=== PATIENT | female | born 1990 | race Caucasian/White ===

== ENCOUNTER 2024-02-03 13:53 | Inpatient (IN) | payer MEDICAID ==
[~2024-02-03] VITALS: Ht 170.2 cm; Wt 118.4 kg
[2024-02-03] MEDS ORDERED: METF-1211 PO (16:55)
[2024-02-03] MEDS ORDERED: LITH300T PO (16:55)
[2024-02-03] MEDS ORDERED: DIVA-112 PO ×2 (16:55)
[2024-02-03] MEDS ORDERED: QUET300T2 PO ×2 (16:55)
[2024-02-03] MEDS ORDERED: LITH600C5 PO (16:55)
[2024-02-03 16:58] LABS: BASOPHILS % (AUTO) 0.6 % (0.0-2.0); EOSINOPHILS % (AUTO) 5.2 % (1.0-6.0); HEMATOCRIT 37.5 % (36-46); HEMOGLOBIN 12.5 g/dL (12.0-16.0); LYMPHOCYTES # (AUTO) 2.2 K/uL (1.0-4.8); LYMPHOCYTES % (AUTO) 24.6 % (22.0-44.0); MEAN CORPUSCULAR HEMOGLOBIN 30.9 pg (26.0-34.0); MEAN CORPUSCULAR HGB CONC 33.3 G/dL (31.0-37.0); MEAN CORPUSCULAR VOLUME 93 fL (80-100); MONOCYTES # (AUTO) 1.1 K/uL (0.1-1.0); MONOCYTES % (AUTO) 12.2 % (2.0-9.0); NEUTROPHILS # (AUTO) 5.1 K/uL (1.8-7.7); NEUTROPHILS % (AUTO) 57.4 % (40.0-70.0); PLATELET COUNT (AUTO) 280 K/uL (150-450); RED BLOOD CELL COUNT(AUTO) 4.04 MIL/uL (4.00-5.20); WHITE BLOOD COUNT (AUTO) 8.9 K/uL (4.5-11.0)
[2024-02-03 17:09] LABS: ANION GAP 9 mmol/L (8-16); CALCIUM, TOTAL 8.4 mg/dL (8.8-10.5); CARBON DIOXIDE 28 mmol/L (22-29); CHLORIDE 103 mmol/L (98-107); CREATININE 0.68 mg/dL (0.60-1.30); GLOMERULAR FILTR. RATE CALC > 60 mL/min (>60); GLUCOSE,RANDOM 84 mg/dL (70-110); POTASSIUM 4.5 mmol/L (3.5-5.1); SODIUM SERUM 140 mmol/L (136-145); UREA NITROGEN, BLOOD 16 mg/dL (7-18)
[2024-02-03 17:15] LABS: ALCOHOL, BLOOD (SERUM) < 3 mg/dL (0-10)
[2024-02-03 17:52] LABS: PH,URINE DRUG SCREEN 7.5 (5.0-8.0)
[2024-02-03 18:13] LABS: ALCOHOL, URINE DRUG SCREEN NEGATIVE (NEGATIVE); AMPHET/METH SCREEN,URINE NEGATIVE (NEGATIVE); BARBITURATE SCREEN, URINE NEGATIVE (NEGATIVE); BENZODIAZEPINES SCREEN,URINE NEGATIVE (NEGATIVE); CANNABINOID SCREEN,URINE NEGATIVE (NEGATIVE); COCAINE SCREEN,URINE NEGATIVE (NEGATIVE); METHADONE SCREEN, URINE NEGATIVE (NEGATIVE); OPIATE SCREEN,URINE NEGATIVE (NEGATIVE); PHENCYCLIDINE SCREEN,URINE NEGATIVE (NEGATIVE)
[2024-02-03 18:56] LABS: VALPROIC ACID 67 mcg/mL (50-100)
[2024-02-03] MEDS: DiphenhydrAMINE HCL 50 MG/ML VIAL IM ONE (19:00)
[2024-02-03] MEDS: LORazepam 2 MG/ML VIAL IM ONE (19:01)
[2024-02-03] MEDS: HALOPERIDOL LACTATE 5 MG/ML VIAL IM ONE (19:01)
[2024-02-04 00:14] LABS: COVID AG,FIA SOURCE NASAL SWAB
[2024-02-04 00:35] LABS: SARS-COV2 (COVID) ANTIGEN,FIA Negative (Negative)
[2024-02-04] MEDS: NICOTINE 21 MG/24 HOUR PATCH TD ONE (11:30)
[2024-02-04] MEDS: LORazepam 2 MG TABLET PO PRN (13:44)
[2024-02-04] MEDS ORDERED: MAGNESIUM HYDROXIDE SUSPENSION 30 ML UDCUP PO PRN (16:15)
[2024-02-04] MEDS ORDERED: LOPERAMIDE HCL 2 MG CAPSULE PO PRN (16:15)
[2024-02-04] MEDS ORDERED: MAG HYDROX/ALUMINUM HYD/SIMETH ES 30 ML SUSPENSION UDCUP PO PRN (16:15)
[2024-02-04] MEDS ORDERED: HydrOXYzine PAMOATE 50 MG CAPSULE PO PRN (16:15)
[2024-02-04] MEDS ORDERED: PROMETHAZINE HCL 25 MG TABLET PO PRN (16:15)
[2024-02-04] MEDS ORDERED: TUBERCULIN, PURIFIED PROTEIN DERIVATIVE 5 TU/0.1 ML SYRINGE ID ONE (16:15)
[2024-02-04] MEDS: LITHIUM CARBONATE 600 MG CAPSULE PO SCH (17:49)
[2024-02-04] MEDS: THIAMINE 100 MG TABLET PO SCH (17:49)
[2024-02-04] MEDS: HALOPERIDOL 5 MG TABLET PO PRN (17:50)
[2024-02-04 18:22] VITALS: BP 111/75; PULSE 95; RESP 18; TEMP 98.7; O2SAT 99
[2024-02-04 20:50] VITALS: BP 135/76; PULSE 76; RESP 18; TEMP 97.2; O2SAT 99
[2024-02-04 21:13] VITALS: BP 118/76; PULSE 88; RESP 18; TEMP 98.2; O2SAT 99
[2024-02-04] MEDS: QUEtiapine FUMARATE 200 MG TABLET PO SCH (21:37)
[2024-02-04] MEDS: ZOLPIDEM TARTRATE 10 MG TABLET PO PRN (21:37)
[2024-02-04] MEDS: DIVALPROEX SODIUM 500 MG ER TABLET PO SCH (21:38)
[2024-02-04] MEDS: MELATONIN 5 MG TABLET PO SCH (21:38)
[2024-02-05 08:21] VITALS: BP 109/66; PULSE 72; RESP 17; TEMP 97.8; O2SAT 99
[2024-02-05 09:00] VITALS: RESP 18
[2024-02-05] MEDS: FOLIC ACID 1 MG TABLET PO SCH (09:11)
[2024-02-05] MEDS: MULTIVITAMINS WITH MINERALS, THERAPEUTIC TABLET PO SCH (09:11)
[2024-02-05 09:30] LABS: GLUCOMETER DEV NAME(LOC) BV3S.; GLUCOSE,POINT OF CARE 110 MG/DL (70-110)
[2024-02-05 20:15] VITALS: BP 138/79; PULSE 95; RESP 18; TEMP 98.2
[2024-02-05] MEDS: NICOTINE 21 MG/24 HOUR PATCH TD SCH (20:44)
[2024-02-05 21:07] VITALS: BP 138/79; PULSE 95; RESP 16; TEMP 98.2; O2SAT 96
[2024-02-06 09:28] VITALS: RESP 15
[2024-02-06 09:30] VITALS: RESP 15
[2024-02-06 12:21] VITALS: RESP 15
[2024-02-06] MEDS: ACETAMINOPHEN 325 MG TABLET PO PRN (12:21)
[2024-02-06 13:21] VITALS: RESP 16
[2024-02-06] MEDS ORDERED: DiphenhydrAMINE HCL 50 MG/ML VIAL ONE (14:30)
[2024-02-06] MEDS ORDERED: HALOPERIDOL LACTATE 5 MG/ML VIAL ONE (14:30)
[2024-02-06] MEDS ORDERED: LORazepam 2 MG/ML VIAL ONE (14:30)
[2024-02-06] MEDS: DiphenhydrAMINE HCL 50 MG/ML VIAL IM ONE (14:41)
[2024-02-06] MEDS: HALOPERIDOL LACTATE 5 MG/ML VIAL IM ONE (14:41)
[2024-02-06] MEDS: LORazepam 2 MG/ML VIAL IM ONE (14:41)
[2024-02-06 21:30] VITALS: BP 123/68; PULSE 109; RESP 18; TEMP 97.7; O2SAT 99
[2024-02-07 08:46] VITALS: BP 99/62; PULSE 72; RESP 18; TEMP 98; O2SAT 98
[2024-02-07 21:26] VITALS: BP 100/58; PULSE 97; RESP 17; TEMP 98; O2SAT 96
[2024-02-08 08:32] VITALS: BP 88/56; PULSE 82; RESP 16; TEMP 97.8; O2SAT 97
[2024-02-08] MEDS: GuaiFENesin/D-METHORPHAN [SUGAR-FREE] 200-20MG/10 ML SYRUP UDCUP PO PRN (10:15)
[2024-02-08 10:35] VITALS: BP 116/65; PULSE 96; RESP 17; TEMP 97.9; O2SAT 96
[2024-02-08] MEDS: NICOTINE POLACRILEX 2 MG LOZENGE PO PRN (17:56)
[2024-02-08 21:57] VITALS: BP 128/92; PULSE 98; RESP 16; TEMP 98; O2SAT 99
[2024-02-09 05:55] VITALS: RESP 20
[2024-02-09 08:40] VITALS: BP 97/61; PULSE 93; RESP 18; TEMP 97.7; O2SAT 98
[2024-02-09] MEDS: LORazepam 2 MG/ML VIAL IM ONE (17:42)
[2024-02-09] MEDS: HALOPERIDOL LACTATE 5 MG/ML VIAL IM ONE (17:42)
[2024-02-09] MEDS: DiphenhydrAMINE HCL 50 MG/ML VIAL IM ONE (17:42)
[2024-02-09 20:06] VITALS: BP 133/91; PULSE 99; RESP 18; TEMP 97.8; O2SAT 99
[2024-02-09 21:14] VITALS: BP 102/68; PULSE 92; RESP 18; TEMP 97.5; O2SAT 97
[2024-02-10 08:53] VITALS: BP 102/67; PULSE 62; RESP 17; TEMP 97.7; O2SAT 96
[2024-02-10] MEDS: NICOTINE 21 MG/24 HOUR PATCH TD ONE (13:56)
[2024-02-10 14:05] VITALS: RESP 17
[2024-02-10 15:05] VITALS: RESP 17
[2024-02-10] MEDS: QUEtiapine FUMARATE 200 MG TABLET PO SCH (20:40)
[2024-02-10] MEDS: OLANZapine 5 MG RAPDIS TABLET PO SCH (22:01)
[2024-02-10 22:17] VITALS: BP 114/70; PULSE 96; RESP 16; TEMP 96.8; O2SAT 98
[2024-02-11 09:47] VITALS: BP 132/79; PULSE 98; RESP 18; TEMP 97.9; O2SAT 96
[2024-02-11] MEDS: NICOTINE 21 MG/24 HOUR PATCH TD SCH (13:25)
[2024-02-11 19:54] VITALS: BP 135/81; PULSE 84; RESP 18; TEMP 97.9; O2SAT 98
[2024-02-11 22:53] VITALS: BP 135/81; PULSE 84; RESP 18; TEMP 97.9; O2SAT 84
[2024-02-12 08:34] VITALS: BP 135/88; PULSE 83; RESP 17; TEMP 97.8; O2SAT 97
[2024-02-12] MEDS: QUEtiapine FUMARATE 200 MG TABLET PO SCH (20:37)
[2024-02-12] MEDS: OLANZapine 10 MG RAPDIS TABLET PO SCH (20:38)
[2024-02-12 20:39] VITALS: BP 134/72; PULSE 89; RESP 17; TEMP 98.3; O2SAT 97
[2024-02-13 08:31] VITALS: RESP 16
[2024-02-13] MEDS: OLANZapine 10 MG RAPDIS TABLET PO SCH (20:13)
[2024-02-13] MEDS ORDERED: QUEtiapine FUMARATE 100 MG TABLET PO SCH (21:00)
[2024-02-13 23:51] VITALS: RESP 18
[2024-02-14 08:27] VITALS: BP 116/62; PULSE 70; RESP 17; TEMP 98; O2SAT 100
[2024-02-14 10:15] VITALS: RESP 17
[2024-02-14 11:15] VITALS: RESP 17
[2024-02-14 20:52] VITALS: BP 114/73; PULSE 101; RESP 17; TEMP 98
[2024-02-15 08:13] VITALS: BP 100/60; PULSE 74; RESP 16; TEMP 97.3; O2SAT 97
[2024-02-15 20:28] VITALS: BP 97/59; PULSE 106; RESP 17; TEMP 97.5; O2SAT 98
[2024-02-16 08:28] VITALS: BP 116/74; PULSE 80; RESP 16; TEMP 98; O2SAT 97
[2024-02-16] MEDS ORDERED: DIVA-153 PO (14:03)
[2024-02-16] MEDS ORDERED: MELA5TAB40 PO (14:03)
[2024-02-16] MEDS ORDERED: OLAN10TA26 PO (14:03)
[2024-02-16] MEDS ORDERED: LITH600C PO (14:03)
== END 2024-02-16 18:40 | DRG 750 ==
LOC: EMS 13:53 → EDBEDREQ 02-04 08:32 → B3A 02-04 15:35
PROVIDERS: ADMIT Psychiatry & Neurology Psychiatry; ATTEND Psychiatry & Neurology Psychiatry
PROC: GZHZZZZ Group Psychotherapy (ICD-10-PCS; principal; 2024-02-05)
PROC: GZ58ZZZ Individual Psychotherapy, Cognitive-Behavioral (ICD-10-PCS; 2024-02-05)
DX: F25.9 Schizoaffective disorder, unspecified (principal); E11.9 Type 2 diabetes mellitus without complications; E66.01 Morbid (severe) obesity due to excess calories; K59.00 Constipation, unspecified; Z20.822 Contact with and (suspected) exposure to COVID-19; G47.00 Insomnia, unspecified; Z87.891 Personal history of nicotine dependence; Z88.0 Allergy status to penicillin; Z91.148 Patient's other noncompliance with medication regimen for other reason; Z68.41 Body mass index [BMI] 40.0-44.9, adult; Z55.9 Problems related to education and literacy, unspecified; Z59.9 Problem related to housing and economic circumstances, unspecified; Z63.9 Problem related to primary support group, unspecified; Z65.3 Problems related to other legal circumstances
CPT/HCPCS: 80048; 80164; 80178; 80307; 82962; 85025; 87081; 87481; 99285; G0480; J1200; J1630; J2060

== ENCOUNTER 2024-02-20 19:48 | Emergency (ER) | payer MEDICAID, OTHER ==
[~2024-02-20] VITALS: Ht 170.2 cm; Wt 104.5 kg
[~2024-02-20 19:48] MED LIST: DIVA-112 PO; DIVA-153 PO; LITH600C PO; MELA5TAB40 PO; OLAN10TA26 PO
[2024-02-20 20:01] VITALS: TEMP 98.7
[2024-02-20 21:00] VITALS: BP 119/68; PULSE 89; RESP 18; O2SAT 97
== END 2024-02-21 02:20 | disposition home or self-care (01) ==
LOC: EMS 19:48
DX: R45.1 Restlessness and agitation (principal); F41.9 Anxiety disorder, unspecified; E11.9 Type 2 diabetes mellitus without complications; F20.9 Schizophrenia, unspecified; F17.210 Nicotine dependence, cigarettes, uncomplicated; Z88.0 Allergy status to penicillin
CPT/HCPCS: 99283; Z7502

== ENCOUNTER 2024-02-27 18:31 | Inpatient (IN) | payer MEDICAID, OTHER ==
[~2024-02-27] VITALS: Ht 162.6 cm; Wt 122.0 kg
[2024-02-27 19:53] LABS: BASOPHILS % (AUTO) 0.7 % (0.0-2.0); EOSINOPHILS % (AUTO) 6.2 % (1.0-6.0); HEMATOCRIT 39.8 % (36-46); LYMPHOCYTES # (AUTO) 2.7 K/uL (1.0-4.8); MEAN CORPUSCULAR HEMOGLOBIN 30.9 pg (26.0-34.0); MEAN CORPUSCULAR HGB CONC 32.7 G/dL (31.0-37.0); MEAN CORPUSCULAR VOLUME 95 fL (80-100); MONOCYTES % (AUTO) 9.9 % (2.0-9.0); NEUTROPHILS # (AUTO) 5.5 K/uL (1.8-7.7); NEUTROPHILS % (AUTO) 56.2 % (40.0-70.0); PLATELET COUNT (AUTO) 312 K/uL (150-450); RED BLOOD CELL COUNT(AUTO) 4.22 MIL/uL (4.00-5.20); RED CELL DISTRIBUTION WIDTH 14.8 % (11.5-14.5); WHITE BLOOD COUNT (AUTO) 9.8 K/uL (4.5-11.0)
[2024-02-27 19:55] LABS: COVID AG,FIA SOURCE NASAL SWAB
[2024-02-27 19:58] LABS: CARBON DIOXIDE 26 mmol/L (22-29); CHLORIDE 105 mmol/L (98-107); CREATININE 0.62 mg/dL (0.60-1.30); GLOMERULAR FILTR. RATE CALC > 60 mL/min (>60); GLUCOSE,RANDOM 93 mg/dL (70-110); POTASSIUM 4.1 mmol/L (3.5-5.1); SODIUM SERUM 138 mmol/L (136-145); UREA NITROGEN, BLOOD 17 mg/dL (7-18)
[2024-02-27 20:11] LABS: ALCOHOL, BLOOD (SERUM) < 3 mg/dL (0-10)
[2024-02-27 20:12] LABS: ANION GAP 7 mmol/L (8-16)
[2024-02-27 20:13] LABS: ALCOHOL, URINE DRUG SCREEN NEGATIVE (NEGATIVE); AMPHET/METH SCREEN,URINE NEGATIVE (NEGATIVE); BARBITURATE SCREEN, URINE NEGATIVE (NEGATIVE); BENZODIAZEPINES SCREEN,URINE NEGATIVE (NEGATIVE); CANNABINOID SCREEN,URINE NEGATIVE (NEGATIVE); COCAINE SCREEN,URINE NEGATIVE (NEGATIVE); METHADONE SCREEN, URINE NEGATIVE (NEGATIVE); OPIATE SCREEN,URINE NEGATIVE (NEGATIVE); PHENCYCLIDINE SCREEN,URINE NEGATIVE (NEGATIVE)
[2024-02-27] MEDS: HALOPERIDOL LACTATE 5 MG/ML VIAL IM ONE (20:19)
[2024-02-27] MEDS: LORazepam 2 MG/ML VIAL IM ONE (20:19)
[2024-02-27 20:20] LABS: SARS-COV2 (COVID) ANTIGEN,FIA Negative (Negative)
[2024-02-27] MEDS: DiphenhydrAMINE HCL 50 MG/ML VIAL IM ONE (20:20)
[2024-02-28 08:30] VITALS: O2SAT 98
[2024-02-28 10:12] VITALS: BP 123/85; PULSE 108; RESP 18; TEMP 98.2; O2SAT 95
[2024-02-28] MEDS ORDERED: DOCUSATE SODIUM 100 MG CAPSULE PO PRN (11:45)
[2024-02-28] MEDS ORDERED: LOPERAMIDE HCL 2 MG CAPSULE PO PRN (11:45)
[2024-02-28] MEDS ORDERED: ACETAMINOPHEN 325 MG TABLET PO PRN (11:45)
[2024-02-28] MEDS ORDERED: CloNIDine HCL 0.1 MG TABLET PO PRN (11:45)
[2024-02-28] MEDS ORDERED: ALBUTEROL SULFATE HFA 90 MCG/PUFF 8 GM INHALER IH PRN (11:45)
[2024-02-28] MEDS ORDERED: MAGNESIUM HYDROXIDE SUSPENSION 30 ML UDCUP PO PRN (11:45)
[2024-02-28] MEDS ORDERED: ONDANSETRON 4 MG TABLET PO PRN (11:45)
[2024-02-28] MEDS ORDERED: OMEPRAZOLE 20 MG CAPSULE PO PRN (11:45)
[2024-02-28] MEDS ORDERED: BENZOCAINE/MENTHOL LOZENGE PO PRN (11:45)
[2024-02-28] MEDS ORDERED: IBUPROFEN 600 MG TABLET PO PRN (11:45)
[2024-02-28] MEDS ORDERED: MAG HYDROX/ALUMINUM HYD/SIMETH ES 30 ML SUSPENSION UDCUP PO PRN (11:45)
[2024-02-28] MEDS ORDERED: PETROLATUM,WHITE 28 GM JELLY TP PRN (11:45)
[2024-02-28] MEDS ORDERED: BACITRACIN 28 GM OINTMENT TP PRN (11:45)
[2024-02-28] MEDS: HALOPERIDOL 5 MG TABLET PO PRN (14:58)
[2024-02-28 20:16] VITALS: BP 115/74; PULSE 107; RESP 17; TEMP 98.4; O2SAT 95
[2024-02-28] MEDS: NICOTINE POLACRILEX 2 MG LOZENGE PO PRN (21:01)
[2024-02-28] MEDS: ZOLPIDEM TARTRATE 10 MG TABLET PO PRN (21:01)
[2024-02-28] MEDS: LORazepam 2 MG TABLET PO PRN (22:06)
[2024-02-29 08:34] VITALS: BP 100/60; PULSE 83; RESP 17; TEMP 97; O2SAT 97
[2024-02-29 20:04] VITALS: BP 106/65; PULSE 95; RESP 16; TEMP 98; O2SAT 98
[2024-03-01 08:18] VITALS: RESP 16
[2024-03-01] MEDS ORDERED: ACETAMINOPHEN 325 MG TABLET PO PRN (11:30)
[2024-03-01] MEDS ORDERED: GuaiFENesin/D-METHORPHAN [SUGAR-FREE] 200-20MG/10 ML SYRUP UDCUP PO PRN (11:30)
[2024-03-01] MEDS ORDERED: MAGNESIUM HYDROXIDE SUSPENSION 30 ML UDCUP PO PRN (11:30)
[2024-03-01] MEDS ORDERED: PROMETHAZINE HCL 25 MG TABLET PO PRN (11:30)
[2024-03-01] MEDS ORDERED: MAG HYDROX/ALUMINUM HYD/SIMETH ES 30 ML SUSPENSION UDCUP PO PRN (11:30)
[2024-03-01] MEDS ORDERED: LOPERAMIDE HCL 2 MG CAPSULE PO PRN (11:30)
[2024-03-01] MEDS: ETHYL ALCOHOL 62% ANTISEPTIC NASAL SANITIZER 0.6 ML AMPUL NASAL SCH (12:33)
[2024-03-01] MEDS ORDERED: LORazepam 2 MG/ML VIAL ONE (15:43)
[2024-03-01] MEDS ORDERED: HALOPERIDOL LACTATE 5 MG/ML VIAL ONE (15:43)
[2024-03-01] MEDS ORDERED: DiphenhydrAMINE HCL 50 MG/ML VIAL ONE (15:43)
[2024-03-01] MEDS: LORazepam 2 MG/ML VIAL IM ONE (15:53)
[2024-03-01] MEDS: DiphenhydrAMINE HCL 50 MG/ML VIAL IM ONE (15:53)
[2024-03-01] MEDS: HALOPERIDOL LACTATE 5 MG/ML VIAL IM ONE (15:53)
[2024-03-01] MEDS: THIAMINE 100 MG TABLET PO SCH (16:25)
[2024-03-01] MEDS: OLANZapine 5 MG RAPDIS TABLET PO PRN (16:25)
[2024-03-01] MEDS: LITHIUM CARBONATE 600 MG CAPSULE PO SCH (16:25)
[2024-03-01] MEDS: HydrOXYzine PAMOATE 50 MG CAPSULE PO PRN (16:26)
[2024-03-01] MEDS: MELATONIN 5 MG TABLET PO SCH (20:09)
[2024-03-01] MEDS: DIVALPROEX SODIUM 500 MG ER TABLET PO SCH (20:09)
[2024-03-01] MEDS: OLANZapine 5 MG RAPDIS TABLET PO SCH (20:09)
[2024-03-01 20:19] VITALS: BP 142/82; PULSE 86; RESP 16; TEMP 96.5; O2SAT 98
[2024-03-01] MEDS: CHLORHEXIDINE GLUCONATE 2% TOWELETTE [2'S/6'S] TP SCH (22:00)
[2024-03-02 08:11] VITALS: BP 130/86; PULSE 80; RESP 16; TEMP 98; O2SAT 98
[2024-03-02] MEDS: MULTIVITAMINS WITH MINERALS, THERAPEUTIC TABLET PO SCH (09:02)
[2024-03-02] MEDS: FOLIC ACID 1 MG TABLET PO SCH (09:02)
[2024-03-02 09:11] LABS: CHOL/HDL RATIO 3.3 (3.9-5.7)
[2024-03-02] MEDS: OLANZapine 10 MG RAPDIS TABLET PO SCH (20:07)
[2024-03-02 22:03] VITALS: RESP 18
[2024-03-03 08:11] VITALS: RESP 18
[2024-03-03 20:28] VITALS: BP 139/94; PULSE 90; RESP 18; TEMP 97.6; O2SAT 97
[2024-03-04 08:04] VITALS: RESP 18
== END 2024-03-04 20:48 | DRG 750 ==
LOC: EMS 18:31 → B3A 02-28 08:18
PROVIDERS: ADMIT Psychiatry & Neurology Psychiatry; ATTEND Psychiatry & Neurology Psychiatry
PROC: GZ56ZZZ Individual Psychotherapy, Supportive (ICD-10-PCS; principal; 2024-03-01)
DX: F25.9 Schizoaffective disorder, unspecified (principal); E11.9 Type 2 diabetes mellitus without complications; E66.9 Obesity, unspecified; G47.00 Insomnia, unspecified; Z20.822 Contact with and (suspected) exposure to COVID-19; K59.00 Constipation, unspecified; Z60.8 Other problems related to social environment; F17.210 Nicotine dependence, cigarettes, uncomplicated; Z78.1 Physical restraint status; F32.9 Major depressive disorder, single episode, unspecified; Z59.00 Homelessness unspecified; Z68.42 Body mass index [BMI] 45.0-49.9, adult; Z91.148 Patient's other noncompliance with medication regimen for other reason; F41.9 Anxiety disorder, unspecified
CPT/HCPCS: 80048; 80061; 80164; 80178; 80307; 83036; 84703; 85025; 87081; 99285; G0480; J1200; J1630; J2060

== ENCOUNTER 2024-04-03 10:47 | Inpatient (IN) | payer MEDICAID, OTHER ==
[~2024-04-03] VITALS: Ht 170.2 cm; Wt 121.6 kg
[~2024-04-03 10:47] MED LIST changes: -DIVA-112 PO
[2024-04-03] MEDS ORDERED: THIA100T80 PO (12:16)
[2024-04-03] MEDS ORDERED: DIAZ-328 PO ×2 (12:16)
[2024-04-03] MEDS ORDERED: MELA5TAB40 PO (12:16)
[2024-04-03] MEDS ORDERED: CHLO100T42 PO (12:16)
[2024-04-03] MEDS ORDERED: OLAN10TA74 PO (12:16)
[2024-04-03] MEDS ORDERED: MULT-1203 PO (12:16)
[2024-04-03] MEDS ORDERED: HALO100V36 IM (12:16)
[2024-04-03] MEDS ORDERED: DIVA-112 PO (12:16)
[2024-04-03 12:28] LABS: COVID AG,FIA SOURCE NASAL SWAB
[2024-04-03 12:49] LABS: HEMATOCRIT 38.4 % (36-46); HEMOGLOBIN 12.7 g/dL (12.0-16.0); LYMPHOCYTES % (AUTO) 30.1 % (22.0-44.0); MEAN CORPUSCULAR HEMOGLOBIN 31.2 pg (26.0-34.0); MEAN CORPUSCULAR HGB CONC 33.1 G/dL (31.0-37.0); MEAN CORPUSCULAR VOLUME 94 fL (80-100); MONOCYTES # (AUTO) 0.4 K/uL (0.1-1.0); MONOCYTES % (AUTO) 6.7 % (2.0-9.0); NEUTROPHILS # (AUTO) 3.8 K/uL (1.8-7.7); NEUTROPHILS % (AUTO) 58.2 % (40.0-70.0); PLATELET COUNT (AUTO) 334 K/uL (150-450); RED BLOOD CELL COUNT(AUTO) 4.07 MIL/uL (4.00-5.20); RED CELL DISTRIBUTION WIDTH 13.4 % (11.5-14.5); WHITE BLOOD COUNT (AUTO) 6.5 K/uL (4.5-11.0)
[2024-04-03 12:49] LABS: SARS-COV2 (COVID) ANTIGEN,FIA Negative (Negative)
[2024-04-03 12:54] LABS: ANION GAP 6 mmol/L (8-16); CALCIUM, TOTAL 8.4 mg/dL (8.8-10.5); CARBON DIOXIDE 30 mmol/L (22-29); CHLORIDE 106 mmol/L (98-107); CREATININE 0.58 mg/dL (0.60-1.30); GLOMERULAR FILTR. RATE CALC > 60 mL/min (>60); GLUCOSE,RANDOM 98 mg/dL (70-110); POTASSIUM 4.3 mmol/L (3.5-5.1); SODIUM SERUM 141 mmol/L (136-145); UREA NITROGEN, BLOOD 8 mg/dL (7-18)
[2024-04-03 12:56] LABS: ALCOHOL, BLOOD (SERUM) < 3 mg/dL (0-10)
[2024-04-03] MEDS ORDERED: ALPRAZolam 0.5 MG TABLET PO PRN (16:15)
[2024-04-03] MEDS: MELATONIN 5 MG TABLET PO SCH (20:16)
[2024-04-03] MEDS: ChlorproMAZINE HCL 10 MG TABLET PO SCH (21:19)
[2024-04-03] MEDS: TraZODone HCL 100 MG TABLET PO SCH (21:20)
[2024-04-03] MEDS: DESMOPRESSIN ACETATE 0.2 MG TABLET PO SCH (21:22)
[2024-04-03] MEDS: DiphenhydrAMINE HCL 50 MG/ML VIAL IM ONE (21:23)
[2024-04-03] MEDS: LORazepam 2 MG/ML VIAL IM ONE (21:23)
[2024-04-03] MEDS: HALOPERIDOL LACTATE 5 MG/ML VIAL IM ONE (21:24)
[2024-04-03] MEDS: DIAZEPAM 5 MG TABLET PO SCH (22:07)
[2024-04-04] MEDS: ZOLPIDEM TARTRATE 10 MG TABLET PO PRN (02:27)
[2024-04-04] MEDS: DIAZEPAM 5 MG TABLET PO SCH (07:33)
[2024-04-04] MEDS: ChlorproMAZINE HCL 10 MG TABLET PO SCH (07:34)
[2024-04-04] MEDS: OLANZapine 10 MG RAPDIS TABLET PO SCH (07:34)
[2024-04-04] MEDS: CloNIDine HCL 0.1 MG TABLET PO SCH (09:00)
[2024-04-04 11:24] LABS: ALCOHOL, URINE DRUG SCREEN NEGATIVE (NEGATIVE); AMPHET/METH SCREEN,URINE NEGATIVE (NEGATIVE); BARBITURATE SCREEN, URINE NEGATIVE (NEGATIVE); BENZODIAZEPINES SCREEN,URINE POSITIVE (NEGATIVE); CANNABINOID SCREEN,URINE NEGATIVE (NEGATIVE); COCAINE SCREEN,URINE NEGATIVE (NEGATIVE); METHADONE SCREEN, URINE NEGATIVE (NEGATIVE); OPIATE SCREEN,URINE NEGATIVE (NEGATIVE); PHENCYCLIDINE SCREEN,URINE NEGATIVE (NEGATIVE)
[2024-04-04 13:27] VITALS: O2SAT 99
[2024-04-04] MEDS ORDERED: MAG HYDROX/ALUMINUM HYD/SIMETH ES 30 ML SUSPENSION UDCUP PO PRN (19:15)
[2024-04-04] MEDS ORDERED: ONDANSETRON 4 MG TABLET PO PRN (19:15)
[2024-04-04] MEDS ORDERED: BACITRACIN 28 GM OINTMENT TP PRN (19:15)
[2024-04-04] MEDS ORDERED: LOPERAMIDE HCL 2 MG CAPSULE PO PRN (19:15)
[2024-04-04] MEDS ORDERED: DOCUSATE SODIUM 100 MG CAPSULE PO PRN (19:15)
[2024-04-04] MEDS ORDERED: CloNIDine HCL 0.1 MG TABLET PO PRN (19:15)
[2024-04-04] MEDS ORDERED: OMEPRAZOLE 20 MG CAPSULE PO PRN (19:15)
[2024-04-04] MEDS ORDERED: MAGNESIUM HYDROXIDE SUSPENSION 30 ML UDCUP PO PRN (19:15)
[2024-04-04] MEDS ORDERED: ALBUTEROL SULFATE HFA 90 MCG/PUFF 8 GM INHALER IH PRN (19:15)
[2024-04-04] MEDS ORDERED: PETROLATUM,WHITE 28 GM JELLY TP PRN (19:15)
[2024-04-04] MEDS: INFLUENZA VIRUS VACCINE TVS (6MO+) 2024-25/PF 45 MCG/0.5 ML SYRINGE IM. ONE (19:53)
[2024-04-04 20:44] VITALS: BP 128/70; PULSE 100; RESP 17; TEMP 97.1; O2SAT 100
[2024-04-05] MEDS: ChlorproMAZINE HCL 100 MG TABLET PO PRN (06:12)
[2024-04-05 08:33] VITALS: RESP 16
[2024-04-05] MEDS: HALOPERIDOL DECANOATE 100 MG/ML VIAL IM SCH (10:02)
[2024-04-05 20:25] VITALS: BP 131/79; PULSE 83; RESP 18; TEMP 98; O2SAT 94
[2024-04-06 06:31] VITALS: BP 118/84; PULSE 68; RESP 18; TEMP 98; O2SAT 100
[2024-04-06 12:24] VITALS: BP 109/71; PULSE 84; RESP 17; TEMP 97.6; O2SAT 98
[2024-04-06 20:20] VITALS: BP 109/70; PULSE 80; RESP 16; TEMP 97.2; O2SAT 96
[2024-04-07 08:27] VITALS: BP 118/79; PULSE 82; RESP 16; TEMP 98; O2SAT 97
[2024-04-07 20:33] VITALS: BP 118/70; PULSE 62; RESP 16; TEMP 96.2; O2SAT 98
[2024-04-08 10:06] VITALS: RESP 18
[2024-04-08] MEDS: BENZOCAINE/MENTHOL LOZENGE PO PRN (17:18)
[2024-04-08 20:02] VITALS: BP 104/63; PULSE 74; RESP 18; TEMP 97.3; O2SAT 97
[2024-04-09 07:05] VITALS: BP 136/73; PULSE 82; RESP 18; TEMP 97.6
[2024-04-10 21:22] VITALS: BP 109/68; PULSE 89; RESP 16; TEMP 97.8; O2SAT 94
[2024-04-11 06:35] VITALS: BP 112/73; PULSE 73; RESP 18; TEMP 97.5; O2SAT 96
[2024-04-11 08:31] VITALS: BP 106/74; PULSE 83; RESP 18; TEMP 96.8; O2SAT 96
[2024-04-11 12:39] VITALS: BP 105/73; PULSE 98; RESP 18; TEMP 98.3; O2SAT 99
[2024-04-11 20:39] VITALS: BP 108/61; PULSE 62; RESP 18; TEMP 98; O2SAT 96
[2024-04-12 11:52] VITALS: BP 131/69; PULSE 92; RESP 16; TEMP 97.6; O2SAT 97
[2024-04-12 21:00] VITALS: BP 105/68; PULSE 79; RESP 18; TEMP 96.8; O2SAT 96
[2024-04-13 08:32] VITALS: RESP 18
[2024-04-13 23:09] VITALS: RESP 16
[2024-04-14 08:18] VITALS: RESP 18
[2024-04-14] MEDS ORDERED: LORazepam 2 MG/ML VIAL ONE (09:37)
[2024-04-14] MEDS ORDERED: ChlorproMAZINE HCL 50 MG/2 ML AMP ONE (09:38)
[2024-04-14] MEDS ORDERED: DiphenhydrAMINE HCL 50 MG/ML VIAL ONE (09:38)
[2024-04-14] MEDS: LORazepam 2 MG/ML VIAL IM ONE (10:07)
[2024-04-14] MEDS: DiphenhydrAMINE HCL 50 MG/ML VIAL IM ONE (10:07)
[2024-04-14] MEDS: ChlorproMAZINE HCL 50 MG/2 ML AMP IM ONE (10:08)
[2024-04-14 20:27] VITALS: BP 140/54; PULSE 89; RESP 17; TEMP 95.9; O2SAT 98
[2024-04-15 08:24] VITALS: RESP 16
[2024-04-15 13:00] VITALS: BP 100/51; PULSE 100; RESP 18; TEMP 98
[2024-04-15 13:02] VITALS: BP 102/63; PULSE 96; RESP 18
[2024-04-15 20:29] VITALS: BP 134/60; PULSE 88; RESP 18; TEMP 97.5; O2SAT 98
[2024-04-16] VITALS (7 sets, daily range): BP systolic 90–132; BP diastolic 60–80; PULSE 68–115; RESP 16–18; TEMP 97.9–98.2; O2SAT 96–98
[2024-04-16] MEDS: ACETAMINOPHEN 325 MG TABLET PO PRN (06:33)
[2024-04-16] MEDS: IBUPROFEN 600 MG TABLET PO PRN (17:09)
[2024-04-17] MEDS: ALPRAZolam 0.25 MG TABLET PO PRN (04:35)
[2024-04-17 05:47] VITALS: BP 112/78; PULSE 110; RESP 18; TEMP 98.1; O2SAT 96
[2024-04-17 06:56] VITALS: RESP 18; TEMP 98
[2024-04-17 08:39] VITALS: BP 100/61; PULSE 88; RESP 17; TEMP 97.6; O2SAT 98
[2024-04-17 20:27] VITALS: BP 122/81; PULSE 87; RESP 18; TEMP 97.4; O2SAT 96
[2024-04-18 08:23] VITALS: RESP 16
[2024-04-18] MEDS: ETHYL ALCOHOL 62% ANTISEPTIC NASAL SANITIZER 0.6 ML AMPUL NASAL SCH (10:23)
[2024-04-18 20:41] VITALS: BP 118/80; PULSE 92; RESP 18; TEMP 97; O2SAT 100
[2024-04-18] MEDS: CHLORHEXIDINE GLUCONATE 2% TOWELETTE [2'S/6'S] TP SCH (21:11)
[2024-04-19 08:21] VITALS: RESP 16
[2024-04-19 11:07] LABS: CHLORPROMAZINE <20 ng/mL (30-300)
[2024-04-19] MEDS: ChlorproMAZINE HCL 10 MG TABLET PO SCH (20:06)
[2024-04-19 20:18] VITALS: PULSE 114; RESP 18; TEMP 97.2; O2SAT 98
[2024-04-20 06:19] VITALS: BP 123/78; PULSE 78; RESP 20; TEMP 97; O2SAT 97
[2024-04-20 08:09] VITALS: BP 119/70; PULSE 70; RESP 17; TEMP 96.7; O2SAT 98
[2024-04-20] MEDS: ChlorproMAZINE HCL 50 MG TABLET PO SCH (17:08)
[2024-04-20 21:00] VITALS: RESP 16
[2024-04-21 08:22] VITALS: BP 119/80; PULSE 70; RESP 17; TEMP 97; O2SAT 97
[2024-04-21] MEDS ORDERED: TRAZ-257 PO (16:50)
[2024-04-21] MEDS ORDERED: CHLO50TA61 PO (16:50)
[2024-04-21] MEDS ORDERED: OLAN10TA26 PO (16:50)
[2024-04-21] MEDS ORDERED: CLON0.1T2 PO (16:50)
[2024-04-21] MEDS ORDERED: HALO100V36 IM (16:50)
[2024-04-21] MEDS ORDERED: DIAZ-328 PO (16:50)
[2024-04-21] MEDS ORDERED: DESM0.2T4 PO (16:50)
[2024-04-22 09:00] VITALS: BP 100/62; PULSE 65; RESP 16; TEMP 96.7; O2SAT 97
[2024-04-22 11:32] VITALS: RESP 16
[2024-04-22] MEDS ORDERED: DiphenhydrAMINE HCL 50 MG/ML VIAL ONE (12:04)
[2024-04-22] MEDS ORDERED: LORazepam 2 MG/ML VIAL ONE (12:04)
[2024-04-22] MEDS: DiphenhydrAMINE HCL 50 MG/ML VIAL IM ONE (12:19)
[2024-04-22] MEDS: LORazepam 2 MG/ML VIAL IM ONE (12:19)
[2024-04-22 12:32] VITALS: RESP 16
[2024-04-22 20:16] VITALS: RESP 16
[2024-04-22] MEDS: DiphenhydrAMINE HCL 25 MG CAPSULE PO SCH (21:00)
[2024-04-23] MEDS: VALPROIC ACID 250 MG/5 ML SOLUTION UDCUP PO SCH (08:55)
[2024-04-23] MEDS: ChlorproMAZINE HCL 100 MG TABLET PO SCH (08:55)
[2024-04-23 10:50] VITALS: RESP 18
[2024-04-24 06:27] VITALS: BP 123/67; PULSE 76; RESP 18
[2024-04-24 09:34] VITALS: RESP 17
[2024-04-24] MEDS: VALPROIC ACID 250 MG CAPSULE PO SCH (17:00)
[2024-04-24 20:26] VITALS: RESP 18
[2024-04-24] MEDS: ChlorproMAZINE HCL 100 MG TABLET PO SCH (20:34)
[2024-04-25 12:00] VITALS: BP 112/85; PULSE 82; RESP 15; TEMP 98; O2SAT 95
[2024-04-25 20:02] VITALS: RESP 16
[2024-04-26 08:12] VITALS: RESP 16
[2024-04-26 20:03] VITALS: RESP 16
[2024-04-27 06:12] VITALS: BP 116/79; PULSE 86; RESP 17; TEMP 98.2
[2024-04-27 08:31] VITALS: RESP 16
[2024-04-27 12:25] VITALS: BP 117/77; PULSE 90; RESP 16; TEMP 96.9
[2024-05-06] MEDS ORDERED: HALOPERIDOL DECANOATE 100 MG/ML VIAL IM SCH (09:00)
== END 2024-04-27 15:56 | disposition home or self-care (01) | DRG 750 ==
LOC: EMS 10:47 → B3A 04-04 17:14
PROVIDERS: ADMIT Psychiatry & Neurology Psychiatry; ATTEND Psychiatry & Neurology Psychiatry
PROC: GZHZZZZ Group Psychotherapy (ICD-10-PCS; principal; 2024-04-04)
PROC: GZ51ZZZ Individual Psychotherapy, Behavioral (ICD-10-PCS; 2024-04-04)
DX: F25.0 Schizoaffective disorder, bipolar type (principal); E11.9 Type 2 diabetes mellitus without complications; E66.9 Obesity, unspecified; G47.00 Insomnia, unspecified; K59.00 Constipation, unspecified; Z56.0 Unemployment, unspecified; Z60.8 Other problems related to social environment; R45.86 Emotional lability; F41.9 Anxiety disorder, unspecified; F17.210 Nicotine dependence, cigarettes, uncomplicated; Z20.822 Contact with and (suspected) exposure to COVID-19; Z68.41 Body mass index [BMI] 40.0-44.9, adult; Z55.9 Problems related to education and literacy, unspecified; Z59.9 Problem related to housing and economic circumstances, unspecified; Z63.9 Problem related to primary support group, unspecified; Z65.3 Problems related to other legal circumstances; Z74.01 Bed confinement status
CPT/HCPCS: 80048; 80173; 80307; 80342; 83036; 84703; 85025; 87081; 87481; 99285; G0480; J1200; J1630; J1631; J2060; J3230

== ENCOUNTER 2024-06-15 13:25 | Inpatient (IN) | payer MEDICAID ==
[~2024-06-15] VITALS: Ht 170.2 cm; Wt 129.7 kg
[~2024-06-15 13:25] MED LIST changes: +CHLO50TA61 PO; +CLON0.1T2 PO; +DESM0.2T4 PO; +DIAZ-328 PO; +DIVA-112 PO; -DIVA-153 PO; +HALO100V36 IM; +MULT-1203 PO; +OLAN10TA74 PO; +THIA100T80 PO; +TRAZ-257 PO
[2024-06-15 15:29] LABS: COVID AG,FIA SOURCE NASAL SWAB
[2024-06-15 15:32] LABS: BASOPHILS % (AUTO) 0.9 % (0.0-2.0); EOSINOPHILS % (AUTO) 4.9 % (1.0-6.0); HEMATOCRIT 37.8 % (36-46); HEMOGLOBIN 12.5 g/dL (12.0-16.0); LYMPHOCYTES # (AUTO) 2.4 K/uL (1.0-4.8); MEAN CORPUSCULAR HEMOGLOBIN 29.8 pg (26.0-34.0); MEAN CORPUSCULAR VOLUME 90 fL (80-100); MONOCYTES # (AUTO) 0.4 K/uL (0.1-1.0); MONOCYTES % (AUTO) 4.9 % (2.0-9.0); NEUTROPHILS # (AUTO) 5.2 K/uL (1.8-7.7); NEUTROPHILS % (AUTO) 61.3 % (40.0-70.0); PLATELET COUNT (AUTO) 365 K/uL (150-450); RED BLOOD CELL COUNT(AUTO) 4.19 MIL/uL (4.00-5.20); RED CELL DISTRIBUTION WIDTH 15.6 % (11.5-14.5); WHITE BLOOD COUNT (AUTO) 8.5 K/uL (4.5-11.0)
[2024-06-15 15:43] LABS: APPEARANCE,URINE CLEAR (CLEAR); BILIRUBIN,URINE NEGATIVE (NEGATIVE); COLOR,URINE COLORLESS (YELLOW); GLUCOSE, URINE (UA) NEGATIVE (NEGATIVE); KETONES,URINE NEGATIVE (NEGATIVE); LEUKOCYTE ESTERASE ,URINE NEGATIVE (NEGATIVE); NITRATE,URINE NEGATIVE (NEGATIVE); OCCULT BLOOD,URINE NEGATIVE (NEGATIVE); PROTEIN,URINE NEGATIVE (NEGATIVE); SPECIFIC GRAVITIY, URINE 1.005 (1.003-1.030); UROBILINOGEN,URINE <=1.0 mg/dL (<=1.0)
[2024-06-15 15:43] LABS: ANION GAP 8 mmol/L (8-16); CARBON DIOXIDE 30 mmol/L (22-29); CHLORIDE 105 mmol/L (98-107); CREATININE 0.61 mg/dL (0.60-1.30); GLOMERULAR FILTR. RATE CALC > 60 mL/min (>60); GLUCOSE,RANDOM 119 mg/dL (70-110); POTASSIUM 4.3 mmol/L (3.5-5.1); SODIUM SERUM 143 mmol/L (136-145); UREA NITROGEN, BLOOD 8 mg/dL (7-18)
[2024-06-15 15:49] LABS: AMPHET/METH SCREEN,URINE NEGATIVE (NEGATIVE); BARBITURATE SCREEN, URINE NEGATIVE (NEGATIVE); BENZODIAZEPINES SCREEN,URINE POSITIVE (NEGATIVE); CANNABINOID SCREEN,URINE NEGATIVE (NEGATIVE); COCAINE SCREEN,URINE NEGATIVE (NEGATIVE); METHADONE SCREEN, URINE NEGATIVE (NEGATIVE); OPIATE SCREEN,URINE NEGATIVE (NEGATIVE); PHENCYCLIDINE SCREEN,URINE NEGATIVE (NEGATIVE)
[2024-06-15 15:54] LABS: ALCOHOL, URINE DRUG SCREEN NEGATIVE (NEGATIVE)
[2024-06-15 15:54] LABS: ALCOHOL, BLOOD (SERUM) < 3 mg/dL (0-10)
[2024-06-15 15:55] LABS: SARS-COV2 (COVID) ANTIGEN,FIA Negative (Negative)
[2024-06-15] MEDS: LORazepam 2 MG/ML VIAL IM ONE (16:05)
[2024-06-15] MEDS: DiphenhydrAMINE HCL 50 MG/ML VIAL IM ONE (16:05)
[2024-06-15] MEDS: HALOPERIDOL LACTATE 5 MG/ML VIAL IM ONE (16:06)
[2024-06-15 22:31] VITALS: O2SAT 99
[2024-06-15 23:27] VITALS: BP 130/81; PULSE 98; RESP 20; TEMP 96.8; O2SAT 97
[2024-06-15] MEDS ORDERED: PROMETHAZINE HCL 25 MG TABLET PO PRN (23:30)
[2024-06-15] MEDS ORDERED: MAGNESIUM HYDROXIDE SUSPENSION 30 ML UDCUP PO PRN (23:30)
[2024-06-15] MEDS ORDERED: MAG HYDROX/ALUMINUM HYD/SIMETH ES 30 ML SUSPENSION UDCUP PO PRN (23:30)
[2024-06-15] MEDS ORDERED: LOPERAMIDE HCL 2 MG CAPSULE PO PRN (23:30)
[2024-06-16] MEDS: MULTIVITAMINS WITH MINERALS, THERAPEUTIC TABLET PO SCH (09:16)
[2024-06-16] MEDS: THIAMINE 100 MG TABLET PO SCH (09:16)
[2024-06-16] MEDS: LITHIUM CARBONATE 600 MG CAPSULE PO SCH (09:16)
[2024-06-16] MEDS: FOLIC ACID 1 MG TABLET PO SCH (09:16)
[2024-06-16] MEDS: LORazepam 2 MG TABLET PO PRN (19:15)
[2024-06-16] MEDS: OLANZapine 5 MG RAPDIS TABLET PO PRN (19:15)
[2024-06-16 20:05] VITALS: BP 137/91; PULSE 99; RESP 18; TEMP 98; O2SAT 95
[2024-06-16] MEDS: DIVALPROEX SODIUM 500 MG ER TABLET PO SCH (20:46)
[2024-06-16] MEDS: OLANZapine 10 MG RAPDIS TABLET PO SCH (20:46)
[2024-06-16] MEDS: ZOLPIDEM TARTRATE 10 MG TABLET PO PRN (20:46)
[2024-06-16] MEDS: MELATONIN 5 MG TABLET PO SCH (20:46)
[2024-06-17 08:35] VITALS: RESP 18
[2024-06-17] MEDS: HydrOXYzine PAMOATE 50 MG CAPSULE PO PRN (17:15)
[2024-06-17 20:09] VITALS: BP 136/96; PULSE 97; RESP 19; TEMP 98; O2SAT 97
[2024-06-17] MEDS: OLANZapine 10 MG RAPDIS TABLET PO SCH (20:23)
[2024-06-17] MEDS: GABAPENTIN 300 MG CAPSULE PO PRN (20:51)
[2024-06-18 08:30] VITALS: BP 121/86; PULSE 90; RESP 16; TEMP 98; O2SAT 98
[2024-06-18 08:30] LABS: BASOPHILS % (AUTO) 0.7 % (0.0-2.0); EOSINOPHILS % (AUTO) 4.9 % (1.0-6.0); HEMATOCRIT 37.2 % (36-46); HEMOGLOBIN 12.6 g/dL (12.0-16.0); LYMPHOCYTES # (AUTO) 2.6 K/uL (1.0-4.8); LYMPHOCYTES % (AUTO) 28.6 % (22.0-44.0); MEAN CORPUSCULAR HEMOGLOBIN 30.8 pg (26.0-34.0); MEAN CORPUSCULAR HGB CONC 33.8 G/dL (31.0-37.0); MEAN CORPUSCULAR VOLUME 91 fL (80-100); MONOCYTES # (AUTO) 0.7 K/uL (0.1-1.0); MONOCYTES % (AUTO) 7.5 % (2.0-9.0); NEUTROPHILS # (AUTO) 5.4 K/uL (1.8-7.7); NEUTROPHILS % (AUTO) 58.3 % (40.0-70.0); PLATELET COUNT (AUTO) 375 K/uL (150-450); RED BLOOD CELL COUNT(AUTO) 4.08 MIL/uL (4.00-5.20); WHITE BLOOD COUNT (AUTO) 9.2 K/uL (4.5-11.0)
[2024-06-18 08:54] LABS: LITHIUM 0.43 mmol/L (0.60-1.20)
[2024-06-18 08:58] LABS: HEMOGLOBIN A1C 5.3 % (3.8-5.6)
[2024-06-18 09:06] LABS: ALANINE AMINOTRANSFERASE 19 U/L (12-78); ALBUMIN 2.7 g/dL (3.4-5.0); ALKALINE PHOSPHATASE 88 U/L (46-116); ANION GAP 7 mmol/L (8-16); ASPARTATE AMINOTRANSFERASE 20 U/L (15-37); BILIRUBIN,TOTAL 0.3 mg/dL (0.1-1.0); CALCIUM, TOTAL 8.6 mg/dL (8.8-10.5); CARBON DIOXIDE 26 mmol/L (22-29); CHLORIDE 108 mmol/L (98-107); CHOL/HDL RATIO 2.7 (3.9-5.7); CHOLESTEROL 144 mg/dL (131-200); CREATININE 0.49 mg/dL (0.60-1.30); GLOMERULAR FILTR. RATE CALC > 60 mL/min (>60); GLUCOSE,RANDOM 95 mg/dL (70-110); HDL CHOLESTEROL 54 mg/dL (40-60); LDL CHOL (CALC.) 73 mg/dL (0-130); POTASSIUM 4.4 mmol/L (3.5-5.1); SODIUM SERUM 141 mmol/L (136-145); TOTAL PROTEIN, SERUM 6.8 g/dL (6.4-8.2); TRIGLYCERIDES 87 mg/dL (15-150); UREA NITROGEN, BLOOD 6 mg/dL (7-18); VALPROIC ACID 48 mcg/mL (50-100)
[2024-06-18] MEDS: CloZAPine 25 MG TABLET PO SCH (12:31)
[2024-06-18 20:16] VITALS: BP 122/78; PULSE 100; RESP 18; TEMP 97.3; O2SAT 99
[2024-06-19 06:06] LABS: HEPATITIS C AB (EIA) Reactive (Non Reactive)
[2024-06-19] MEDS: CloZAPine 25 MG TABLET PO SCH ×2 (08:07→20:32)
[2024-06-19] MEDS: NICOTINE 21 MG/24 HOUR PATCH TD SCH (16:21)
[2024-06-19 20:25] VITALS: BP 105/70; PULSE 88; RESP 16; TEMP 98.4; O2SAT 95
[2024-06-20] MEDS: CloZAPine 25 MG TABLET PO SCH ×2 (08:19→20:56)
[2024-06-20] MEDS: LORazepam 2 MG/ML VIAL IM ONE (17:59)
[2024-06-20] MEDS: DiphenhydrAMINE HCL 50 MG/ML VIAL IM ONE (18:01)
[2024-06-20] MEDS: ChlorproMAZINE HCL 50 MG/2 ML AMP IM ONE (18:02)
[2024-06-20 20:16] VITALS: BP 123/86; PULSE 99; RESP 16; TEMP 98.1; O2SAT 96
[2024-06-21] MEDS: CloZAPine 25 MG TABLET PO SCH (08:07)
[2024-06-21 08:26] VITALS: BP 119/69; PULSE 79; RESP 16; TEMP 98; O2SAT 97
[2024-06-21] MEDS: LITHIUM CARBONATE 300 MG CAPSULE PO SCH (16:34)
[2024-06-21 17:06] LABS: HEPATITIS C RT-PCR,QNT HCV Not Detected IU/mL
[2024-06-21] MEDS: ACETAMINOPHEN 325 MG TABLET PO PRN (19:16)
[2024-06-21] MEDS: OLANZapine 10 MG RAPDIS TABLET PO SCH (20:03)
[2024-06-21] MEDS: DIVALPROEX SODIUM 250 MG ER TABLET PO SCH (20:03)
[2024-06-21 20:16] VITALS: BP 127/70; PULSE 80; RESP 17; TEMP 98.4; O2SAT 98
[2024-06-21 20:17] VITALS: BP 120/71; PULSE 98; RESP 16; TEMP 98.5; O2SAT 99
[2024-06-21 21:16] VITALS: RESP 17; O2SAT 98
[2024-06-22 09:09] VITALS: BP 122/68; PULSE 95; RESP 16; TEMP 98; O2SAT 95
[2024-06-22 19:59] VITALS: BP 138/93; PULSE 100; RESP 18; TEMP 98.6; O2SAT 98
[2024-06-23 08:31] VITALS: RESP 16
[2024-06-23] MEDS: CloZAPine 25 MG TABLET PO SCH (09:21)
[2024-06-23 20:23] VITALS: BP 136/90; PULSE 99; RESP 19; TEMP 98.3; O2SAT 99
[2024-06-23] MEDS: CloZAPine 100 MG TABLET PO SCH (22:03)
[2024-06-24] MEDS: CloZAPine 25 MG TABLET PO SCH (08:18)
[2024-06-24 08:25] VITALS: BP 128/84; PULSE 95; RESP 18; TEMP 97.9; O2SAT 98
[2024-06-24] MEDS: CloZAPine 100 MG TABLET PO SCH (20:03)
[2024-06-24 20:40] VITALS: BP 149/93; PULSE 109; RESP 16; TEMP 97; O2SAT 98
[2024-06-25 08:34] LABS: LITHIUM 0.66 mmol/L (0.60-1.20)
[2024-06-25] MEDS: CloZAPine 25 MG TABLET PO SCH (08:37)
[2024-06-25 08:52] LABS: BASOPHILS % (AUTO) 0.6 % (0.0-2.0); EOSINOPHILS % (AUTO) 3.1 % (1.0-6.0); HEMATOCRIT 36.8 % (36-46); HEMOGLOBIN 11.8 g/dL (12.0-16.0); LYMPHOCYTES # (AUTO) 1.9 K/uL (1.0-4.8); LYMPHOCYTES % (AUTO) 12.5 % (22.0-44.0); MEAN CORPUSCULAR HEMOGLOBIN 29.4 pg (26.0-34.0); MEAN CORPUSCULAR HGB CONC 31.9 G/dL (31.0-37.0); MEAN CORPUSCULAR VOLUME 92 fL (80-100); MONOCYTES # (AUTO) 1.2 K/uL (0.1-1.0); MONOCYTES % (AUTO) 7.6 % (2.0-9.0); NEUTROPHILS # (AUTO) 11.6 K/uL (1.8-7.7); NEUTROPHILS % (AUTO) 76.2 % (40.0-70.0); PLATELET COUNT (AUTO) 346 K/uL (150-450); RED BLOOD CELL COUNT(AUTO) 3.99 MIL/uL (4.00-5.20); RED CELL DISTRIBUTION WIDTH 15.9 % (11.5-14.5); WHITE BLOOD COUNT (AUTO) 15.2 K/uL (4.5-11.0)
[2024-06-25 12:23] VITALS: RESP 18
[2024-06-25 20:10] VITALS: BP 150/92; PULSE 99; RESP 16; TEMP 98.2; O2SAT 98
[2024-06-25] MEDS: CloZAPine 100 MG TABLET PO SCH (21:30)
[2024-06-26 07:06] LABS: CLOZAPINE & NORCLOZAPINE <75 ng/mL; NORCLOZAPINE <20 ng/mL (Not Estab.)
[2024-06-26 08:23] VITALS: BP 100/63; PULSE 86; RESP 16; TEMP 97.9; O2SAT 97
[2024-06-26] MEDS: CloZAPine 100 MG TABLET PO SCH (09:31)
[2024-06-26 14:08] VITALS: RESP 16
[2024-06-26 15:03] VITALS: RESP 16
[2024-06-26 20:35] VITALS: RESP 18
[2024-06-27 08:11] VITALS: RESP 17
[2024-06-27 08:50] LABS: LITHIUM 0.64 mmol/L (0.60-1.20)
[2024-06-27] MEDS: LOPERAMIDE HCL 2 MG CAPSULE PO PRN (11:25)
[2024-06-27 20:09] VITALS: BP 122/77; PULSE 89; RESP 18; TEMP 97.8; O2SAT 98
[2024-06-28 08:52] VITALS: BP 118/74; PULSE 88; RESP 16; TEMP 97.8; O2SAT 99
[2024-06-28] MEDS: CloZAPine 25 MG TABLET PO SCH (09:15)
[2024-06-28] MEDS: LITHIUM CARBONATE 300 MG CAPSULE PO SCH (16:23)
[2024-06-28] MEDS: CloZAPine 100 MG TABLET PO SCH (20:06)
[2024-06-28] MEDS: DIVALPROEX SODIUM 500 MG ER TABLET PO SCH (20:07)
[2024-06-28 20:55] VITALS: BP 123/86; PULSE 99; RESP 16; TEMP 98.5; O2SAT 99
[2024-06-29 09:25] VITALS: BP 105/68; PULSE 91; RESP 16; TEMP 98.7; O2SAT 96
[2024-06-29] MEDS: CloZAPine 25 MG TABLET PO SCH (09:34)
[2024-06-29] MEDS: LITHIUM CARBONATE 300 MG TABLET PO SCH (09:34)
[2024-06-29] MEDS: CloZAPine 100 MG TABLET PO SCH (20:03)
[2024-06-29 21:29] VITALS: BP 122/77; PULSE 110; RESP 16; TEMP 98.5; O2SAT 98
[2024-06-30] MEDS ORDERED: QUEtiapine FUMARATE 100 MG TABLET PO PRN (07:45)
[2024-06-30 08:19] VITALS: BP 126/74; PULSE 86; RESP 16; TEMP 97.9; O2SAT 97
[2024-06-30] MEDS: CloZAPine 100 MG TABLET PO SCH ×2 (09:05→20:22)
[2024-06-30] MEDS ORDERED: CLOZ100T61 PO (11:14)
[2024-06-30] MEDS ORDERED: OLAN10TA26 PO (11:14)
[2024-06-30] MEDS ORDERED: DIVA-153 PO (11:14)
[2024-06-30] MEDS ORDERED: LITH300T PO (11:14)
[2024-06-30 20:22] VITALS: BP 137/79; PULSE 89; RESP 16; TEMP 97.7; O2SAT 98
[2024-06-30 20:27] VITALS: BP 125/75; PULSE 99; RESP 18; TEMP 97.8; O2SAT 95
[2024-06-30] MEDS ORDERED: CloZAPine 100 MG TABLET PO SCH (21:00)
[2024-07-01 08:48] VITALS: BP 121/79; PULSE 78; RESP 16; TEMP 97.9; O2SAT 96
[2024-07-01 18:06] LABS: CLOZAPINE & NORCLOZAPINE 198 ng/mL; NORCLOZAPINE 46 ng/mL (Not Estab.)
[2024-07-01 20:45] VITALS: BP 122/89; PULSE 100; RESP 18; TEMP 97.9; O2SAT 97
[2024-07-02 09:00] VITALS: RESP 18
[2024-07-02] MEDS ORDERED: LITH300T45 PO (10:47)
[2024-07-02] MEDS ORDERED: MELA5TAB40 PO (10:48)
== END 2024-07-02 14:20 | DRG 750 ==
LOC: EMS 13:30 → B3A 19:01 → B2S 20:18 → B3A 06-16 10:31 → B2S 06-22 08:43 → B3A 06-22 10:03
PROVIDERS: ADMIT Psychiatry & Neurology Psychiatry; ATTEND Psychiatry & Neurology Psychiatry
PROC: GZHZZZZ Group Psychotherapy (ICD-10-PCS; principal; 2024-06-15)
PROC: GZ51ZZZ Individual Psychotherapy, Behavioral (ICD-10-PCS; 2024-06-15)
DX: F25.9 Schizoaffective disorder, unspecified (principal); G93.41 Metabolic encephalopathy; E11.9 Type 2 diabetes mellitus without complications; E66.9 Obesity, unspecified; Z20.822 Contact with and (suspected) exposure to COVID-19; F17.200 Nicotine dependence, unspecified, uncomplicated; G47.00 Insomnia, unspecified; F41.9 Anxiety disorder, unspecified; K59.00 Constipation, unspecified; F32.9 Major depressive disorder, single episode, unspecified; J44.9 Chronic obstructive pulmonary disease, unspecified; Z88.0 Allergy status to penicillin; Z68.41 Body mass index [BMI] 40.0-44.9, adult
CPT/HCPCS: 80048; 80053; 80061; 80159; 80164; 80178; 80307; 81003; 83036; 84703; 85025; 86803; 87081; 87340; 87522; G0480; J1200; J1630; J2060; J3230

== ENCOUNTER 2024-09-27 11:02 | Inpatient (IN) | payer MEDICAID, OTHER ==
[~2024-09-27] VITALS: Ht 167.6 cm; Wt 142.9 kg
[~2024-09-27 11:02] MED LIST changes: -CHLO50TA61 PO; -CLON0.1T2 PO; +CLOZ100T61 PO; -DESM0.2T4 PO; -DIAZ-328 PO; -DIVA-112 PO; +DIVA-153 PO; -HALO100V36 IM; +LITH300T PO; -LITH600C PO; -MULT-1203 PO; -OLAN10TA74 PO; -THIA100T80 PO; -TRAZ-257 PO
[2024-09-27 12:53] LABS: COVID AG,FIA SOURCE NASAL SWAB
[2024-09-27 12:56] LABS: PH,URINE DRUG SCREEN 8.0 (5.0-8.0)
[2024-09-27 13:01] LABS: AMPHET/METH SCREEN,URINE NEGATIVE (NEGATIVE); BARBITURATE SCREEN, URINE NEGATIVE (NEGATIVE); CANNABINOID SCREEN,URINE NEGATIVE (NEGATIVE); COCAINE SCREEN,URINE NEGATIVE (NEGATIVE); METHADONE SCREEN, URINE NEGATIVE (NEGATIVE)
[2024-09-27 13:03] LABS: ALCOHOL, URINE DRUG SCREEN NEGATIVE (NEGATIVE)
[2024-09-27 13:27] LABS: SARS-COV2 (COVID) ANTIGEN,FIA Negative (Negative)
[2024-09-27 13:40] LABS: PLATELET COUNT (AUTO) 314 K/uL (150-450); RED BLOOD CELL COUNT(AUTO) 4.23 MIL/uL (4.00-5.20); RED CELL DISTRIBUTION WIDTH 14.1 % (11.5-14.5); WHITE BLOOD COUNT (AUTO) 7.9 K/uL (4.5-11.0)
[2024-09-27 13:48] LABS: CALCIUM, TOTAL 9.2 mg/dL (8.8-10.5); CREATININE 0.62 mg/dL (0.60-1.30); GLOMERULAR FILTR. RATE CALC > 60 mL/min (>60); GLUCOSE,RANDOM 98 mg/dL (70-110); SODIUM SERUM 142 mmol/L (136-145); UREA NITROGEN, BLOOD 5 mg/dL (7-18)
[2024-09-27] MEDS ORDERED: MAG HYDROX/ALUMINUM HYD/SIMETH ES 30 ML SUSPENSION UDCUP PO PRN (22:45)
[2024-09-27] MEDS ORDERED: PROMETHAZINE HCL 25 MG TABLET PO PRN (22:45)
[2024-09-27] MEDS ORDERED: LOPERAMIDE HCL 2 MG CAPSULE PO PRN (22:45)
[2024-09-27] MEDS ORDERED: MAGNESIUM HYDROXIDE SUSPENSION 30 ML UDCUP PO PRN (22:45)
[2024-09-28 00:17] VITALS: O2SAT 96
[2024-09-28 02:01] VITALS: BP 139/81; PULSE 80; RESP 18; TEMP 96.7; O2SAT 98
[2024-09-28 07:50] LABS: GLUCOMETER DEV NAME(LOC) BV3N.2; GLUCOSE,POINT OF CARE 100 MG/DL (70-110)
[2024-09-28] MEDS: LITHIUM CARBONATE 300 MG TABLET PO SCH (09:00)
[2024-09-28] MEDS: FOLIC ACID 1 MG TABLET PO SCH (09:00)
[2024-09-28] MEDS: MULTIVITAMINS WITH MINERALS, THERAPEUTIC TABLET PO SCH (09:00)
[2024-09-28] MEDS: THIAMINE 100 MG TABLET PO SCH (09:00)
[2024-09-28 09:03] VITALS: BP 123/79; PULSE 79; RESP 16; TEMP 96.7; O2SAT 96
[2024-09-28 20:18] VITALS: BP 137/90; PULSE 98; RESP 18; TEMP 97.8; O2SAT 98
[2024-09-28] MEDS: MELATONIN 5 MG TABLET PO SCH (21:06)
[2024-09-28] MEDS: DIVALPROEX SODIUM 500 MG ER TABLET PO SCH (21:06)
[2024-09-29] MEDS: OLANZapine 5 MG RAPDIS TABLET PO PRN (13:10)
[2024-09-29] MEDS: DIVALPROEX SODIUM 500 MG ER TABLET PO SCH (21:50)
[2024-09-30 08:24] VITALS: BP 133/96; PULSE 100; RESP 17; TEMP 98; O2SAT 99
[2024-09-30 20:47] VITALS: BP 125/91; PULSE 99; RESP 16; TEMP 98.8; O2SAT 97
[2024-10-01 09:16] VITALS: RESP 18
[2024-10-01 20:10] VITALS: BP 128/90; PULSE 62; RESP 16; TEMP 98.4; O2SAT 99
[2024-10-01] MEDS: ZOLPIDEM TARTRATE 10 MG TABLET PO PRN (20:12)
[2024-10-01] MEDS: ACETAMINOPHEN 325 MG TABLET PO PRN (23:32)
[2024-10-02 08:32] LABS: VALPROIC ACID 55.0 mcg/mL (50-100)
[2024-10-02 10:00] VITALS: BP 111/80; PULSE 99; RESP 16; TEMP 98; O2SAT 97
[2024-10-02 20:27] VITALS: BP 132/90; PULSE 100; RESP 17; TEMP 98.2; O2SAT 98
[2024-10-03 06:35] VITALS: RESP 18
[2024-10-03 11:05] VITALS: BP 122/93; PULSE 89; RESP 18; TEMP 97.5; O2SAT 96
[2024-10-04 08:19] VITALS: BP 99/74; PULSE 70; RESP 17; TEMP 97; O2SAT 95
[2024-10-04 20:22] VITALS: BP 108/79; PULSE 98; RESP 17; TEMP 97.9; O2SAT 95
[2024-10-05 08:27] VITALS: BP 100/64; PULSE 68; RESP 17; TEMP 97.4; O2SAT 97
[2024-10-05 17:07] LABS: CLOZAPINE & NORCLOZAPINE 262 ng/mL; NORCLOZAPINE 71 ng/mL (Not Estab.)
[2024-10-06 08:22] VITALS: BP 114/67; PULSE 83; RESP 18; TEMP 97.6; O2SAT 97
[2024-10-07 09:00] VITALS: BP 132/78; PULSE 88; RESP 18; TEMP 97.2; O2SAT 97
[2024-10-07 16:59] VITALS: BP 124/77; PULSE 98; RESP 20; TEMP 98.1; O2SAT 96
[2024-10-07 20:00] VITALS: BP 124/77; PULSE 98; RESP 20; TEMP 98.1; O2SAT 96
[2024-10-08 08:00] LABS: PLATELET COUNT (AUTO) 321 K/uL (150-450); RED BLOOD CELL COUNT(AUTO) 4.25 MIL/uL (4.00-5.20); RED CELL DISTRIBUTION WIDTH 14.3 % (11.5-14.5); WHITE BLOOD COUNT (AUTO) 12.8 K/uL (4.5-11.0)
[2024-10-08 08:26] VITALS: RESP 18
[2024-10-08 20:23] VITALS: BP 130/97; PULSE 98; RESP 17; TEMP 97.3; O2SAT 100
[2024-10-10 12:43] VITALS: BP 149/86; PULSE 98; RESP 18; TEMP 97.5; O2SAT 100
[2024-10-10 22:25] VITALS: BP 111/85; PULSE 68; RESP 18; TEMP 98; O2SAT 99
[2024-10-11 20:25] VITALS: BP 117/61; PULSE 99; RESP 18; TEMP 97.5; O2SAT 99
[2024-10-12 08:30] VITALS: BP 102/68; PULSE 96; RESP 17; TEMP 97.3; O2SAT 97
[2024-10-12 20:35] VITALS: BP 126/86; PULSE 99; RESP 18; TEMP 98.2; O2SAT 99
[2024-10-13] MEDS: GuaiFENesin/D-METHORPHAN [SUGAR-FREE] 200-20MG/10 ML SYRUP UDCUP PO PRN (02:48)
[2024-10-13 08:38] VITALS: BP 103/73; PULSE 70; RESP 17; TEMP 97.6; O2SAT 97
[2024-10-13 21:13] VITALS: RESP 16
[2024-10-14 10:14] LABS: PLATELET COUNT (AUTO) 269 K/uL (150-450); RED BLOOD CELL COUNT(AUTO) 4.02 MIL/uL (4.00-5.20); RED CELL DISTRIBUTION WIDTH 14.9 % (11.5-14.5); WHITE BLOOD COUNT (AUTO) 9.7 K/uL (4.5-11.0)
[2024-10-14 10:57] LABS: APPEARANCE,URINE CLEAR (CLEAR); GLUCOSE, URINE (UA) NEGATIVE (NEGATIVE); LEUKOCYTE ESTERASE ,URINE NEGATIVE (NEGATIVE); NITRATE,URINE NEGATIVE (NEGATIVE); OCCULT BLOOD,URINE NEGATIVE (NEGATIVE); SPECIFIC GRAVITIY, URINE 1.007 (1.003-1.030)
[2024-10-14 13:52] VITALS: PULSE 93; RESP 16; TEMP 98.1; O2SAT 95
[2024-10-14 21:06] VITALS: BP 134/88; PULSE 90; RESP 16; TEMP 98.6; O2SAT 97
[2024-10-15 20:15] VITALS: BP 104/74; PULSE 94; RESP 17; TEMP 98.8; O2SAT 97
[2024-10-16 10:41] VITALS: RESP 18
[2024-10-16 20:15] VITALS: BP 124/78; PULSE 100; RESP 17; TEMP 98; O2SAT 99
[2024-10-17 20:08] VITALS: BP 120/97; PULSE 98; RESP 17; TEMP 97.2; O2SAT 99
[2024-10-17 21:07] LABS: CLOZAPINE & NORCLOZAPINE 859 ng/mL; NORCLOZAPINE 164 ng/mL (Not Estab.)
[2024-10-18 08:22] VITALS: BP 115/78; PULSE 98; RESP 18; TEMP 98.5; O2SAT 97
[2024-10-19 09:57] LABS: APPEARANCE,URINE CLEAR (CLEAR); GLUCOSE, URINE (UA) NEGATIVE (NEGATIVE); LEUKOCYTE ESTERASE ,URINE NEGATIVE (NEGATIVE); NITRATE,URINE NEGATIVE (NEGATIVE); OCCULT BLOOD,URINE NEGATIVE (NEGATIVE); SPECIFIC GRAVITIY, URINE 1.004 (1.003-1.030)
[2024-10-19 20:49] VITALS: RESP 16
[2024-10-20 08:30] VITALS: RESP 19
[2024-10-20] MEDS ORDERED: TUBERCULIN, PURIFIED PROTEIN DERIVATIVE 5 TU/0.1 ML SYRINGE ID ONE (20:15)
[2024-10-20 22:39] VITALS: RESP 18
[2024-10-21 01:05] LABS: GLUCOMETER DEV NAME(LOC) BV2X.3; GLUCOSE,POINT OF CARE 99 MG/DL (70-110)
[2024-10-21 08:00] VITALS: RESP 16
[2024-10-21 09:37] LABS: PLATELET COUNT (AUTO) 280 K/uL (150-450); RED BLOOD CELL COUNT(AUTO) 4.07 MIL/uL (4.00-5.20); RED CELL DISTRIBUTION WIDTH 14.6 % (11.5-14.5); WHITE BLOOD COUNT (AUTO) 8.6 K/uL (4.5-11.0)
[2024-10-21 09:58] LABS: APPEARANCE,URINE CLEAR (CLEAR); GLUCOSE, URINE (UA) NEGATIVE (NEGATIVE); LEUKOCYTE ESTERASE ,URINE NEGATIVE (NEGATIVE); NITRATE,URINE NEGATIVE (NEGATIVE); OCCULT BLOOD,URINE NEGATIVE (NEGATIVE); SPECIFIC GRAVITIY, URINE 1.004 (1.003-1.030)
[2024-10-21] MEDS: TUBERCULIN, PURIFIED PROTEIN DERIVATIVE 5 TU/0.1 ML SYRINGE ID ONE (12:32)
[2024-10-21 20:57] VITALS: BP 105/70; PULSE 95; RESP 16; TEMP 97.8; O2SAT 96
[2024-10-22 20:21] VITALS: BP 134/109; PULSE 101; RESP 17; TEMP 98.7; O2SAT 98
[2024-10-23 11:50] VITALS: BP 183/92; RESP 18; TEMP 97.3; O2SAT 98
[2024-10-23] MEDS ORDERED: MAG HYDROX/ALUMINUM HYD/SIMETH ES 30 ML SUSPENSION UDCUP PO PRN (12:00)
[2024-10-23] MEDS ORDERED: BENZOCAINE/MENTHOL [CEPACOL] LOZENGE PO PRN (12:00)
[2024-10-23] MEDS ORDERED: ALBUTEROL SULFATE HFA 90 MCG/PUFF 8 GM INHALER IH PRN (12:00)
[2024-10-23] MEDS ORDERED: ONDANSETRON 4 MG TABLET PO PRN (12:00)
[2024-10-23] MEDS ORDERED: PETROLATUM,WHITE 28 GM JELLY TP PRN (12:00)
[2024-10-23] MEDS ORDERED: LOPERAMIDE HCL 2 MG CAPSULE PO PRN (12:00)
[2024-10-23] MEDS ORDERED: OMEPRAZOLE 20 MG CAPSULE PO PRN (12:00)
[2024-10-23] MEDS ORDERED: DOCUSATE SODIUM 100 MG CAPSULE PO PRN (12:00)
[2024-10-23] MEDS ORDERED: BACITRACIN 28 GM OINTMENT TP PRN (12:00)
[2024-10-23] MEDS ORDERED: ACETAMINOPHEN 325 MG TABLET PO PRN (12:00)
[2024-10-23 12:58] VITALS: BP 125/86; PULSE 100; RESP 18; TEMP 97.5; O2SAT 98
[2024-10-23 20:27] VITALS: BP 123/84; PULSE 92; RESP 17; TEMP 97.7; O2SAT 93
[2024-10-24 08:39] VITALS: RESP 17
[2024-10-24 20:52] VITALS: BP 130/92; PULSE 112; RESP 18; TEMP 98.8; O2SAT 98
[2024-10-25 08:37] VITALS: BP 110/77; PULSE 72; RESP 16; TEMP 97.2; O2SAT 97
[2024-10-25] MEDS: NICOTINE POLACRILEX 2 MG LOZENGE PO PRN (12:52)
[2024-10-25 21:09] VITALS: BP 119/92; PULSE 72; RESP 18; TEMP 98.4; O2SAT 99
[2024-10-26 08:58] VITALS: RESP 18
[2024-10-26] MEDS: VALPROIC ACID 250 MG/5 ML SOLUTION UDCUP PO SCH (13:14)
[2024-10-26 20:12] VITALS: BP 102/72; PULSE 95; RESP 18; TEMP 98.4
[2024-10-27 09:00] VITALS: BP 114/91; PULSE 92; RESP 16; TEMP 98.2; O2SAT 98
[2024-10-27 20:13] VITALS: BP 114/91; PULSE 92; RESP 18; TEMP 98.2; O2SAT 98
[2024-10-28 09:45] LABS: PLATELET COUNT (AUTO) 275 K/uL (150-450); RED BLOOD CELL COUNT(AUTO) 3.81 MIL/uL (4.00-5.20); RED CELL DISTRIBUTION WIDTH 14.9 % (11.5-14.5); WHITE BLOOD COUNT (AUTO) 7.9 K/uL (4.5-11.0)
[2024-10-28 10:15] VITALS: BP 118/91; PULSE 89; RESP 18; TEMP 98.4; O2SAT 96
[2024-10-28 21:49] VITALS: BP 127/87; PULSE 98; RESP 18; TEMP 98.6; O2SAT 97
[2024-10-29 10:29] VITALS: BP 108/64; PULSE 82; RESP 18; TEMP 97.8; O2SAT 98
[2024-10-29 20:40] VITALS: RESP 17
[2024-10-30 10:18] VITALS: RESP 17
[2024-10-30 11:07] LABS: CLOZAPINE & NORCLOZAPINE 648 ng/mL; NORCLOZAPINE 132 ng/mL (Not Estab.)
[2024-10-30 21:17] VITALS: BP 126/81; PULSE 79; RESP 18; TEMP 98.8
[2024-10-31 08:00] VITALS: RESP 17
[2024-10-31 21:17] VITALS: BP 124/87; PULSE 99; RESP 18; TEMP 98.6; O2SAT 98
[2024-11-01 08:51] VITALS: RESP 18
[2024-11-01 10:32] VITALS: RESP 18
[2024-11-01] MEDS: IBUPROFEN 600 MG TABLET PO PRN (10:32)
[2024-11-01 11:32] VITALS: RESP 18
[2024-11-01] MEDS: VALPROIC ACID 250 MG/5 ML SOLUTION UDCUP PO SCH (16:12)
[2024-11-01 20:04] VITALS: BP 108/90; PULSE 105; RESP 16; TEMP 98.1; O2SAT 98
[2024-11-02 11:29] VITALS: RESP 19
[2024-11-02 21:08] VITALS: RESP 17
[2024-11-03 08:08] VITALS: RESP 18
[2024-11-03 20:05] VITALS: BP 114/73; PULSE 98; RESP 17; TEMP 98.8
[2024-11-04 01:35] VITALS: BP 127/93; PULSE 104; RESP 18; TEMP 98.6
[2024-11-04 09:14] LABS: PLATELET COUNT (AUTO) 290 K/uL (150-450); RED BLOOD CELL COUNT(AUTO) 3.94 MIL/uL (4.00-5.20); RED CELL DISTRIBUTION WIDTH 14.6 % (11.5-14.5); WHITE BLOOD COUNT (AUTO) 6.6 K/uL (4.5-11.0)
[2024-11-04 18:31] VITALS: BP 123/79; PULSE 77; RESP 18; TEMP 98.1
[2024-11-04 20:35] VITALS: BP 126/62; PULSE 77; RESP 17; TEMP 97.5; O2SAT 97
[2024-11-05 21:49] VITALS: BP 104/72; PULSE 95; RESP 17; TEMP 97.7; O2SAT 97
[2024-11-06 08:10] VITALS: RESP 18
[2024-11-06 20:17] VITALS: BP 129/80; PULSE 88; RESP 17; TEMP 98.1; O2SAT 96
[2024-11-07 08:00] VITALS: RESP 17
[2024-11-07 22:09] VITALS: BP 114/82; PULSE 89; RESP 18; TEMP 98.6; O2SAT 95
[2024-11-08 08:00] VITALS: RESP 18
[2024-11-08] MEDS: VARENICLINE TARTRATE 0.5 MG TABLET PO SCH (16:25)
[2024-11-08 21:10] VITALS: BP 122/87; PULSE 87; RESP 18; TEMP 98.2
[2024-11-09 14:40] VITALS: BP 120/88; PULSE 102; RESP 17; TEMP 99; O2SAT 98
[2024-11-09] MEDS: MAGNESIUM HYDROXIDE SUSPENSION 30 ML UDCUP PO PRN (18:17)
[2024-11-09 21:13] VITALS: BP 118/94; PULSE 110; RESP 17; TEMP 98.2; O2SAT 98
[2024-11-09 23:42] VITALS: BP 120/80; PULSE 92; RESP 18; TEMP 98; O2SAT 98
[2024-11-10 08:06] VITALS: RESP 18
[2024-11-10 14:24] VITALS: BP 118/82; PULSE 94; RESP 18; TEMP 98.1; O2SAT 98
[2024-11-10 20:13] VITALS: BP 115/76; PULSE 89; RESP 17; TEMP 98.1; O2SAT 98
[2024-11-11 08:38] LABS: PLATELET COUNT (AUTO) 274 K/uL (150-450); RED BLOOD CELL COUNT(AUTO) 4.20 MIL/uL (4.00-5.20); RED CELL DISTRIBUTION WIDTH 14.4 % (11.5-14.5); WHITE BLOOD COUNT (AUTO) 8.6 K/uL (4.5-11.0)
[2024-11-11 20:24] VITALS: BP 105/81; PULSE 95; RESP 17; TEMP 99.1; O2SAT 97
[2024-11-12] MEDS: VARENICLINE TARTRATE 0.5 MG TABLET PO SCH (08:36)
[2024-11-12 20:33] VITALS: BP 129/68; PULSE 94; RESP 16; TEMP 98.2; O2SAT 100
[2024-11-13 11:43] VITALS: RESP 19
[2024-11-13 13:19] VITALS: BP 105/59; PULSE 95; RESP 18; TEMP 97.7; O2SAT 96
[2024-11-13 20:07] VITALS: BP 123/76; PULSE 93; RESP 19; TEMP 98; O2SAT 99
[2024-11-14 06:07] LABS: CLOZAPINE & NORCLOZAPINE 829 ng/mL; NORCLOZAPINE 187 ng/mL (Not Estab.)
[2024-11-14 08:21] VITALS: RESP 19
[2024-11-14] MEDS: CHLORHEXIDINE GLUCONATE 0.12% 15 ML UDCUP ORAL RINSE PO SCH (09:45)
[2024-11-14] MEDS ORDERED: BENZOCAINE 10% 7 GM GEL TP PRN (09:45)
[2024-11-14 20:19] VITALS: BP 107/87; PULSE 96; RESP 18; TEMP 98.5; O2SAT 99
[2024-11-15 20:37] VITALS: BP 119/62; PULSE 96; RESP 18; TEMP 99.5; O2SAT 96
[2024-11-16 08:29] VITALS: BP 114/60; PULSE 105; RESP 18; TEMP 97.9; O2SAT 99
[2024-11-17 20:29] VITALS: RESP 18
[2024-11-18 08:07] LABS: PLATELET COUNT (AUTO) 267 K/uL (150-450); RED BLOOD CELL COUNT(AUTO) 4.29 MIL/uL (4.00-5.20); RED CELL DISTRIBUTION WIDTH 14.3 % (11.5-14.5); WHITE BLOOD COUNT (AUTO) 11.5 K/uL (4.5-11.0)
[2024-11-18 09:00] VITALS: RESP 18; TEMP 98.2
[2024-11-18 20:08] VITALS: BP 111/67; PULSE 97; RESP 18; TEMP 98.7; O2SAT 99
[2024-11-19 20:34] VITALS: BP 122/80; PULSE 100; RESP 20; TEMP 97.8; O2SAT 100
[2024-11-20 08:30] VITALS: BP 112/78; PULSE 98; RESP 18; TEMP 97.4; O2SAT 98
[2024-11-20 20:20] VITALS: BP 117/83; PULSE 86; RESP 17; TEMP 98.1; O2SAT 96
[2024-11-21 08:09] VITALS: RESP 18
[2024-11-21 09:51] VITALS: BP 94/66; PULSE 96; RESP 18; TEMP 98.2; O2SAT 100
[2024-11-21 21:20] VITALS: BP 121/65; PULSE 90; RESP 18; TEMP 97.7; O2SAT 90
[2024-11-22 13:01] VITALS: BP 101/66; PULSE 100; RESP 17; TEMP 100.2; O2SAT 100
[2024-11-22 20:23] VITALS: BP 127/83; PULSE 82; RESP 17; TEMP 98.2; O2SAT 98
[2024-11-23 08:21] VITALS: BP 127/85; PULSE 101; RESP 18; TEMP 98.1; O2SAT 100
[2024-11-23 08:35] VITALS: BP 127/85; PULSE 101; RESP 17; TEMP 98.1; O2SAT 100
[2024-11-23 23:35] VITALS: RESP 17
[2024-11-24 09:00] VITALS: BP 129/90; PULSE 94; RESP 18; TEMP 97.2; O2SAT 98
[2024-11-24 11:21] VITALS: RESP 18
[2024-11-24 20:16] VITALS: BP 120/57; PULSE 101; RESP 18; TEMP 98.3; O2SAT 100
[2024-11-24 20:30] VITALS: RESP 17
[2024-11-25 08:26] VITALS: BP 105/62; PULSE 98; RESP 18; TEMP 98.3; O2SAT 96
[2024-11-25 09:10] LABS: PLATELET COUNT (AUTO) 275 K/uL (150-450); RED BLOOD CELL COUNT(AUTO) 4.15 MIL/uL (4.00-5.20); RED CELL DISTRIBUTION WIDTH 14.1 % (11.5-14.5); WHITE BLOOD COUNT (AUTO) 6.9 K/uL (4.5-11.0)
[2024-11-25 10:00] VITALS: BP 130/96; PULSE 89; RESP 16; TEMP 97.3; O2SAT 98
[2024-11-25 20:19] VITALS: BP 128/87; PULSE 70; RESP 18; TEMP 97.5; O2SAT 96
[2024-11-26 08:00] VITALS: RESP 18
[2024-11-27 08:14] VITALS: RESP 19
[2024-11-27 20:16] VITALS: BP 123/82; PULSE 93; RESP 18; TEMP 98.1; O2SAT 96
[2024-11-28 09:58] VITALS: RESP 18
[2024-11-28 20:15] VITALS: BP 127/91; PULSE 98; RESP 18; TEMP 99; O2SAT 99
[2024-11-29 20:12] VITALS: BP 132/83; PULSE 90; RESP 18; TEMP 98; O2SAT 100
[2024-11-30 08:26] LABS: PLATELET COUNT (AUTO) 272 K/uL (150-450); RED BLOOD CELL COUNT(AUTO) 4.22 MIL/uL (4.00-5.20); RED CELL DISTRIBUTION WIDTH 14.3 % (11.5-14.5); WHITE BLOOD COUNT (AUTO) 6.1 K/uL (4.5-11.0)
[2024-11-30 08:27] LABS: ASPARTATE AMINOTRANSFERASE 14 U/L (15-37); CALCIUM, TOTAL 8.9 mg/dL (8.8-10.5); CREATININE 0.41 mg/dL (0.60-1.30); GLOMERULAR FILTR. RATE CALC > 60 mL/min (>60); GLUCOSE,RANDOM 97 mg/dL (70-110); PHOSPHORUS 4.1 mg/dL (2.5-4.9); SODIUM SERUM 143 mmol/L (136-145); TOTAL PROTEIN, SERUM 6.5 g/dL (6.4-8.2); UREA NITROGEN, BLOOD 10 mg/dL (7-18)
[2024-11-30 08:40] VITALS: BP 100/83; PULSE 65; RESP 16; TEMP 96.6; O2SAT 97
[2024-11-30] MEDS ORDERED: VALP250S23 PO (15:10)
[2024-11-30] MEDS ORDERED: GUAN1TAB2 PO (15:10)
[2024-11-30 20:22] VITALS: BP 106/76; PULSE 81; RESP 18; TEMP 98.8; O2SAT 98
[2024-12-01] MEDS ORDERED: OXYB5TAB20 PO (07:59)
[2024-12-01] MEDS ORDERED: CLOZ100T61 PO (08:06)
[2024-12-01] MEDS: VALPROIC ACID 250 MG/5 ML SOLUTION UDCUP PO SCH (09:00)
== END 2024-12-01 09:10 | DRG 750 ==
LOC: EMS 11:02 → EDH 22:45 → UNDOADMIN 22:45 → B3A 09-28 00:07 → B2S 09-29 17:45
PROVIDERS: ADMIT Psychiatry & Neurology Psychiatry; ATTEND Psychiatry & Neurology Psychiatry
PROC: GZHZZZZ Group Psychotherapy (ICD-10-PCS; principal; 2024-09-29)
PROC: GZ58ZZZ Individual Psychotherapy, Cognitive-Behavioral (ICD-10-PCS; 2024-09-29)
PROC: GZ56ZZZ Individual Psychotherapy, Supportive (ICD-10-PCS; 2024-09-29)
DX: F25.0 Schizoaffective disorder, bipolar type (principal); R45.851 Suicidal ideations; Z68.43 Body mass index [BMI] 50.0-59.9, adult; K59.00 Constipation, unspecified; E11.9 Type 2 diabetes mellitus without complications; E66.9 Obesity, unspecified; F17.200 Nicotine dependence, unspecified, uncomplicated; Z63.9 Problem related to primary support group, unspecified; Z59.9 Problem related to housing and economic circumstances, unspecified; Z65.3 Problems related to other legal circumstances; Z55.9 Problems related to education and literacy, unspecified; G47.00 Insomnia, unspecified; Z20.822 Contact with and (suspected) exposure to COVID-19; F17.210 Nicotine dependence, cigarettes, uncomplicated; F32.A Depression, unspecified; J44.9 Chronic obstructive pulmonary disease, unspecified; R32 Unspecified urinary incontinence; Z91.148 Patient's other noncompliance with medication regimen for other reason; Z88.0 Allergy status to penicillin; Z60.8 Other problems related to social environment; F41.9 Anxiety disorder, unspecified; K03.81 Cracked tooth
CPT/HCPCS: 80048; 80053; 80159; 80164; 80178; 80307; 81003; 82962; 83036; 83735; 84100; 84703; 85025; 87081; 96372; 99285; G0480; J1630